=== PATIENT | male | born 1945 | race Caucasian/White ===

== ENCOUNTER 2016-11-07 23:50 | Emergency (ER) | payer MEDICARE, MEDICAID ==
[2016-11-07 23:55] VITALS: BP 142/79
--- NOTE | 2016-11-08 00:15 | ED PDOC ---
Arrival/HPI - General Chief Complaint: Abdominal Pain Time Seen by Provider: 11/07/16 23:54 Historian: Patient - History of Present Illness Narrative History of Present Illness (Text): 11/08/16 00:12 Jonah Blackman is a 71 year old male, with a history of hypercholesterolemia, hypertension, and diabetes, presents to the emergency department complaining of 3 day duration of constipation and mild abdominal discomfort. Patient also reports that he has been unable to urinate for the past few days since the onset of symptoms. States he has experienced constipation in the past, but has never had urine retention. Denies any fever, chills, headache, dizziness, chest pain, shortness of breath, nausea, vomiting, back pain, or any other complaints at this time. Time/Duration: < week (3 days ) Symptom Onset: Gradual Severity Level: Mild Activities at Onset: Light Context: Home Past Medical History - Provider Review Nursing Documentation Reviewed: Yes - Cardiac Hx Hypertension: Yes - Pulmonary Hx Respiratory Disorders: No - Neurological Hx Neurological Disorder: No - HEENT Hx HEENT Disorder: No - Renal Hx Renal Disorder: No - Endocrine/Metabolic Hx Diabetes Mellitus Type 2: Yes - Hematological/Oncological Hx Blood Disorders: No - Integumentary Hx Psoriasis: Yes - Musculoskeletal/Rheumatological Hx Musculoskeletal Disorders: No - Gastrointestinal Hx Gastrointestinal Disorders: No - Genitourinary/Gynecological Hx Genitourinary Disorders: No - Psychiatric Hx Psychophysiologic Disorder: No Hx Substance Use: No Family/Social History - Physician Review Nursing Documentation Reviewed: Yes Family/Social History: No Known Family HX Smoking Status: Never Smoked Hx Alcohol Use: No Hx Substance Use: No Allergies/Home Meds Allergies/Adverse Reactions: Allergies No Known Allergies Allergy (Verified 11/07/16 23:54) Home Medications: Home Meds Medication Instructions Recorded Confirmed Aspirin [Aspirin EC] 325 mg PO DAILY 11/07/16 11/08/16 Atorvastatin [Lipitor] 10 mg PO DIN 11/07/16 11/08/16 Cholecalciferol (Vitamin D3) 1 tab PO DAILY 11/07/16 11/08/16 [D3-5000 90 mg-5000 Iu] Empagliflozin [Jardiance] 25 mg PO DAILY 11/07/16 11/08/16 Gabapentin [Neurontin] 600 mg PO TID 11/07/16 11/08/16 Glimepiride [amaRYL] 2 mg PO BID 11/07/16 11/08/16 Linagliptin [Tradjenta] 5 mg PO DAILY 11/07/16 11/08/16 Losartan/Hydrochlorothiazide 1 tab PO DAILY 11/07/16 11/08/16 [Losartan-Hctz 100-25 mg Tab] Metformin HCl [Glucophage] 1,000 mg PO BID 11/07/16 11/08/16 Tamsulosin HCl [Flomax] 0.4 mg PO DAILY 11/07/16 11/08/16 Amoxicillin [Amoxil 500 mg Cap] 500 mg PO Q8 11/08/16 11/08/16 Review of Systems - Physician Review All systems were reviewed & negative as marked: Yes - Review of Systems Constitutional: Normal. absent: Fatigue, Fevers Respiratory: Normal. absent: SOB, Cough, Sputum Cardiovascular: Normal. absent: Chest Pain Gastrointestinal: Abdominal Pain, Constipation. absent: Diarrhea, Nausea, Vomiting Genitourinary Male: Urinary Output Changes (unable to urinate ) Neurological: Normal. absent: Headache, Dizziness Psychiatric: Normal Physical Exam Vital Signs Reviewed: Yes Vital Signs Temp Pulse Resp BP Pulse Ox 11/08/16 02:35 98.1 F 90 16 98 11/07/16 23:54 98.6 F 93 H 18 142/79 95 Temperature: Afebrile Blood Pressure: Normal Pulse: Regular Respiratory Rate: Normal Appearance: Positive for: Well-Appearing, Non-Toxic, Comfortable Pain Distress: None Mental Status: Positive for: Alert and Oriented X 3 - Systems Exam Head: Present: Atraumatic, Normocephalic Pupils: Present: PERRL Conjunctiva: Present: Normal Mouth: Present: Moist Mucous Membranes Neck: Present: Normal Range of Motion Respiratory/Chest: Present: Clear to Auscultation, Good Air Exchange. No: Respiratory Distress, Accessory Muscle Use Cardiovascular: Present: Regular Rate and Rhythm, Normal S1, S2. No: Murmurs Abdomen: Present: Normal Bowel Sounds. No: Tenderness, Distention, Peritoneal Signs, Rebound, Guarding Upper Extremity: Present: Normal Inspection. No: Cyanosis, Edema Lower Extremity: Present: Normal Inspection. No: Edema Neurological: Present: GCS=15, CN II-XII Intact, Speech Normal, Motor Func Grossly Intact, Normal Sensory Function Skin: Present: Warm, Dry, Normal Color. No: Rashes Psychiatric: Present: Alert, Oriented x 3, Normal Insight, Normal Concentration Medical Decision Making ED Course and Treatment: 11/08/16 00:17 Impression: A 71 year old male who presents to the emergency department complaining of constipation and urine retention for 3 days. Plan: -- CT abdomen pelvis -- EKG -- Labs -- Bladder Scan -- Urinalysis -- Reassess and disposition Progress Notes: 11/07/16 21:50 EKG reviewed by me: NSR @ 90 bpm. Inferior infarct. 11/08/16 01:47 CT Abdomen and Pelvis results reviewed: FINDINGS: Limitations: Lack of intravenous contrast. Lower thorax: Mild cardiomegaly. Small cyst or bulla RIGHT lower lobe. Minimal atelectasis. ABDOMEN: Liver: Fatty infiltration. Gallbladder and bile ducts: No calcified stones. No ductal dilation. Pancreas: Unremarkable. No ductal dilation. Spleen: Linear peripheral calcification along spleen. Mild splenomegaly. Adrenals: No mass. Kidneys and ureters: Punctate calculus within RIGHT kidney. Too small to characterize lesion within LEFT kidney. No hydronephrosis. Stomach and bowel: Few segmental areas of underdistention of colon. No definite mural thickening. No obstruction. Appendix: Normal caliber. No inflammation. PELVIS: Bladder: Unremarkable. No stones. Reproductive: Enlarged prostate gland. ABDOMEN and PELVIS: Intraperitoneal space: No significant fluid collection. No free air. Bones/joints: Moderate compression fracture L4 vertebral body, likely subacute. Soft tissues: Mild gynecomastia. Small LEFT inguinal hernia containing fat. Vasculature: Mild atherosclerotic disease. No aneurysm. Lymph nodes: No pathologically enlarged lymph nodes. IMPRESSION: 1. Nonobstructing renal calculus. 2. Prostate enlargement. Followup as clinically warranted. 3. Incidental/non-acute findings are described above. 11/08/16 02:47 On re-evaluation, patient feels better and is in no acute distress. I have discussed the results and plan with the patient, who expresses understanding. Patient in agreement with plan to be discharged home. Patient is stable for discharge. Advised to present to emergency department for new/worsening symptoms. Patient strongly advised to follow up with sales trainee for colonoscopy. Re-evaluation Time: 02:45 Reassessment Condition: Re-examined, Improved - Lab Interpretations Lab Results: 11/08/16 00:32 11/08/16 00:32 Lab Results 11/08/16 00:32: Sodium 136, Potassium 3.9, Chloride 98, Carbon Dioxide 27, Anion Gap 15, BUN 22 H, Creatinine 0.8, Est GFR ( Amer) > 60, Est GFR ( Non-Af Amer) > 60, Random Glucose 124 H, Calcium 9.6, Total Bilirubin 0.5, AST 19, ALT 21, Alkaline Phosphatase 59, Lactate Dehydrogenase 348, Total Creatine Kinase 81, Troponin I < 0.01, Total Protein 7.9, Albumin 4.0, Globulin 3.9, Albumin/Globulin Ratio 1.0 L, Amylase 79, Lipase 50 11/08/16 00:32: PT 11.9 H, INR 1.10 H, APTT 27.3 11/08/16 00:32: WBC 7.7, RBC 4.40, Hgb 12.6 L, Hct 38.2 L, MCV 86.8, MCH 28.6, MCHC 33.0, RDW 14.2, Plt Count 283, MPV 9.8, Gran % 67.1, Lymph % (Auto) 21.5 L , [place] % (Auto) 10.0 H, Eos % (Auto) 1.3 L, Baso % (Auto) 0.1, Gran # 5.16, Lymph # 1.7, [place] # 0.8 H, Eos # 0.1, Baso # 0.01 - RAD Interpretation Radiology Orders: 11/08/16 00:12 ABD & PELVIS W/O PO OR IV CONT [CT] Stat - Medication Orders Current Medication Orders: Discontinued Medications Morphine Sulfate (Morphine) 2 mg IVP STAT STA Stop: 11/08/16 01:34 Last Admin: 11/08/16 02:05 Dose: 2 mg Sodium Phosphate (Fleet Enema) 135 ml RC STAT STA Stop: 11/08/16 01:37 Last Admin: 11/08/16 02:05 Dose: 135 ml - Scribe Statement The provider has reviewed the documentation as recorded by the Aleshia Bolden Provider Attestation: Provider Scribe Attestation: All medical record entries made by the Scribe were at my direction and personally dictated by me. I have reviewed the chart and agree that the record accurately reflects my personal performance of the history, physical exam, medical decision making, and the department course for this patient. I have also personally directed, reviewed, and agree with the discharge instructions and disposition. Disposition/Present on Arrival - Present on Arrival Any Indicators Present on Arrival: No History of DVT/PE: No History of Uncontrolled Diabetes: No Urinary Catheter: No History of Decub. Ulcer: No History Surgical Site Infection Following: None - Disposition Have Diagnosis and Disposition been Completed?: Yes Diagnosis: Constipation Disposition: HOME/ ROUTINE Disposition Time: 02:45 Patient Problems: Current Active Problems Problem Status Onset Constipation Acute Condition: GOOD Discharge Instructions (ExitCare): Constipation (ED) Prescriptions: Polyethylene Glycol 3350 [Miralax] 17 gm PO DAILY #225 gm Referrals: Michael Haider MD [Medical Doctor] - Follow up with primary
[2016-11-08 01:00] LABS: ADD MANUAL DIFF? NO
[2016-11-08 01:08] LABS: BASO # 0.01 K/mm3 (0.0-2.0); BASO % 0.1 % (0.0-3.0); EOS # 0.1 (0.0-0.7); EOS % 1.3 % (1.5-5.0); GRAN # 5.16 (1.4-6.5); GRAN % 67.1 % (50.0-68.0); HEMATOCRIT 38.2 % (42.0-52.0); LYMPH # 1.7 (1.2-3.4); LYMPH % 21.5 % (22.0-35.0); MEAN CELL VOLUME 86.8 fL (80.0-105.0); MEAN CORPUSCULAR HEMOGLOBIN 28.6 pg (25.0-35.0); MEAN PLATELET VOLUME 9.8 fl (7.0-11.0); MONO # 0.8 (0.1-0.6); PLATELET COUNT 283 10^3/uL (120.0-450.0); RED CELL DISTRIBUTION WIDTH 14.2 % (11.5-14.5); WHITE BLOOD COUNT 7.7 10^3/ul (4.5-11.0)
[2016-11-08 01:13] LABS: INR 1.1 (0.93-1.08); PARTIAL THROMBOPLASTIN TIME 27.3 Seconds (23.7-30.8)
[2016-11-08 01:15] LABS: ALKALINE PHOSPHATASE 59 U/L (38-133); ALT/SGPT 21 U/L (7-56); AMYLASE 79 U/L (35-125); AST/SGOT 19 U/L (15-59); BILIRUBIN,TOTAL 0.5 mg/dL (0.2-1.3); BLOOD UREA NITROGEN 22 mg/dL (7-21); CALCIUM 9.6 mg/dL (8.4-10.5); CARBON DIOXIDE 27 mmol/L (21-33); CHLORIDE 98 mmol/L (98-107); GFR AFRICAN-AMERICAN > 60; GLUCOSE,RANDOM 124 mg/dL (70-110); LIPASE 50 U/L (23-300); POTASSIUM 3.9 mmol/L (3.6-5.0); SODIUM 136 mmol/L (132-148); TOTAL PROTEIN 7.9 g/dL (5.8-8.3)
[2016-11-08 01:28] LABS: TROPONIN I < 0.01 ng/mL
[2016-11-08] MEDS ORDERED: Morphine 2 mg/ml ISec IVP STA (01:33)
--- NOTE | 2016-11-08 01:35 | CT ---
EXAM: CT Abdomen and Pelvis Without Intravenous Contrast CLINICAL HISTORY: 71 years old, male; Pain; Abdominal pain; Generalized; Additional info: Abd pain TECHNIQUE: Axial computed tomography images of the abdomen and pelvis without intravenous contrast. This CT exam was performed using one or more of the following dose reduction techniques: automated exposure control, adjustment of the mA and/or kV according to patient size, and/or use of iterative reconstruction technique. Coronal and sagittal reformatted images were created and reviewed. COMPARISON: No relevant prior studies available. FINDINGS: Limitations: Lack of intravenous contrast. Lower thorax: Mild cardiomegaly. Small cyst or bulla RIGHT lower lobe. Minimal atelectasis. ABDOMEN: Liver: Fatty infiltration. Gallbladder and bile ducts: No calcified stones. No ductal dilation. Pancreas: Unremarkable. No ductal dilation. Spleen: Linear peripheral calcification along spleen. Mild splenomegaly. Adrenals: No mass. Kidneys and ureters: Punctate calculus within RIGHT kidney. Too small to characterize lesion within LEFT kidney. No hydronephrosis. Stomach and bowel: Few segmental areas of underdistention of colon. No definite mural thickening. No obstruction. Appendix: Normal caliber. No inflammation. PELVIS: Bladder: Unremarkable. No stones. Reproductive: Enlarged prostate gland. ABDOMEN and PELVIS: Intraperitoneal space: No significant fluid collection. No free air. Bones/joints: Moderate compression fracture L4 vertebral body, likely subacute. Soft tissues: Mild gynecomastia. Small LEFT inguinal hernia containing fat. Vasculature: Mild atherosclerotic disease. No aneurysm. Lymph nodes: No pathologically enlarged lymph nodes. IMPRESSION: 1. Nonobstructing renal calculus. 2. Prostate enlargement. Followup as clinically warranted. 3. Incidental/non-acute findings are described above.
[2016-11-08 02:36] VITALS: PULSE 90; TEMP 98.1
[2016-11-08 02:57] VITALS: RESP 18; O2SAT 99
--- NOTE | 2016-11-08 15:58 | CARD ---
APPROVED REPORT EKG Measurement Heart [id number] <Conclusion> Normal sinus rhythm Inferior infarct, age undetermined Abnormal ECG
== END 2016-11-08 02:58 | disposition home or self-care (01) ==
LOC: ED 23:50
DX: K59.00 Constipation, unspecified (principal); I10 Essential (primary) hypertension; E78.00 Pure hypercholesterolemia, unspecified; E11.9 Type 2 diabetes mellitus without complications
CPT/HCPCS: 74176; 80053; 82150; 82550; 83615; 83690; 84484; 85025; 85610; 85730; 93005; 96374; 99283; J2270